=== PATIENT | female | born 1985 | race African-American/Black ===

== ENCOUNTER 2024-10-03 18:05 | Emergency (ER) | payer SELFPAY ==
[~2024-10-03] VITALS: Ht 167.6 cm; Wt 143.8 kg
[2024-10-03] MEDS ORDERED: AMLODIPINE BESY10 MG PO (18:20)
[2024-10-03] MEDS: IBUPROFEN 600 MG TAB PO STA (19:03)
[2024-10-03 21:47] VITALS: PULSE 83; RESP 18; TEMP 98.2
[2024-10-03 21:52] VITALS: BP 166/98; PULSE 83; RESP 18; TEMP 98.2; O2SAT 97
== END 2024-10-03 21:48 | disposition home or self-care (01) ==
LOC: FSED 18:09
DX: M54.6 Pain in thoracic spine (principal); S29.012A Strain of muscle and tendon of back wall of thorax, initial encounter; V43.52XA Car driver injured in collision with other type car in traffic accident, initial encounter; Y92.488 Other paved roadways as the place of occurrence of the external cause; I10 Essential (primary) hypertension; E66.9 Obesity, unspecified; F17.210 Nicotine dependence, cigarettes, uncomplicated
CPT/HCPCS: 71046; 99284